=== PATIENT | female | born 1990 | race American Indian/Alaskan Native ===

== ENCOUNTER 2019-05-30 19:21 | Emergency (ER) | payer SELFPAY ==
[2019-05-31] MEDS ORDERED: DECADRON IM ONE (00:16)
--- NOTE | 2019-05-31 00:21 | Emergency Department Report ---
ED ENT HPI - General Chief complaint: Earache Stated complaint: NECK/EAR/TOOTH/LYMPH NODES PAIN Time Seen by Provider: 05/30/19 23:14 Source: patient Mode of arrival: Ambulatory Limitations: No Limitations - History of Present Illness Initial comments: Patient is a 29-year-old female who presents to the emergency room with complaints of a left-sided earache that began 2 days ago. She has associated sore throat and feeling like her lymph nodes are swollen. She denies any fever or sick contacts. denies any ear drainage. States she has a past medical history of hypertension during two years ago but is not taking any medications currently. - Related Data Previous Rx's Medication Instructions Recorded Last Taken Type Ibuprofen [Motrin 800 MG tab] 800 mg PO Q8HR PRN #30 tablet 07/16/16 Unknown Rx Lidocain2.5%/Prilocai2.5% [Emla] 5 gm TP 1XW #1 tube 07/16/16 Unknown Rx oxyCODONE /ACETAMINOPHEN [Percocet 1 - 2 tab PO Q4HR PRN #30 tab 07/16/16 Unknown Rx 5/325 mg] Labetalol [Labetalol 200mg TAB] 200 mg PO BID #60 tablet 07/18/16 Unknown Rx Amoxicillin [Amoxicillin TAB] 875 mg PO BID 7 Days #14 tablet 05/31/19 Unknown Rx Nystas/Diphen/Xyl Visc/Mylanta 30 ml MM BID PRN #480 ml 05/31/19 Unknown Rx [Magic Mouthwash] Allergies Allergy/AdvReac Type Severity Reaction Status Date / Time No Known Allergies Allergy Verified 05/12/14 00:17 ED Dental HPI - General Chief complaint: Earache Stated complaint: NECK/EAR/TOOTH/LYMPH NODES PAIN Time Seen by Provider: 05/30/19 23:14 Source: patient Mode of arrival: Ambulatory Limitations: No Limitations - Related Data Previous Rx's Medication Instructions Recorded Last Taken Type Ibuprofen [Motrin 800 MG tab] 800 mg PO Q8HR PRN #30 tablet 07/16/16 Unknown Rx Lidocain2.5%/Prilocai2.5% [Emla] 5 gm TP 1XW #1 tube 07/16/16 Unknown Rx oxyCODONE /ACETAMINOPHEN [Percocet 1 - 2 tab PO Q4HR PRN #30 tab 07/16/16 Unknown Rx 5/325 mg] Labetalol [Labetalol 200mg TAB] 200 mg PO BID #60 tablet 07/18/16 Unknown Rx Amoxicillin [Amoxicillin TAB] 875 mg PO BID 7 Days #14 tablet 05/31/19 Unknown Rx Nystas/Diphen/Xyl Visc/Mylanta 30 ml MM BID PRN #480 ml 05/31/19 Unknown Rx [Magic Mouthwash] Allergies Allergy/AdvReac Type Severity Reaction Status Date / Time No Known Allergies Allergy Verified 05/12/14 00:17 ED Review of Systems ROS: Stated complaint: NECK/EAR/TOOTH/LYMPH NODES PAIN Other details as noted in HPI Comment: All other systems reviewed and negative ED Past Medical Hx - Past Medical History Previous Medical History?: Yes Hx Hypertension: Yes (chronic HTN, labetalol bid) Hx Heart Attack/AMI: No Hx Congestive Heart Failure: No Hx Diabetes: No Hx Deep Vein Thrombosis: No Hx Renal Disease: No Hx Sickle Cell Disease: No Hx Seizures: No Hx Asthma: No Hx COPD: No Hx HIV: No Additional medical history: gastroenteritis hx. - Surgical History Past Surgical History?: Yes Additional Surgical History: D&C miscarriage 2006 - Social History Smoking Status: Current Every Day Smoker Substance Use Type: None - Medications Home Medications: Home Medications Medication Instructions Recorded Confirmed Last Taken Type Ibuprofen [Motrin 800 MG tab] 800 mg PO Q8HR PRN #30 tablet 07/16/16 Unknown Rx Lidocain2.5%/Prilocai2.5% [Emla] 5 gm TP 1XW #1 tube 07/16/16 Unknown Rx oxyCODONE /ACETAMINOPHEN [Percocet 1 - 2 tab PO Q4HR PRN #30 tab 07/16/16 Unknown Rx 5/325 mg] Labetalol [Labetalol 200mg TAB] 200 mg PO BID #60 tablet 07/18/16 Unknown Rx Amoxicillin [Amoxicillin TAB] 875 mg PO BID 7 Days #14 tablet 05/31/19 Unknown Rx Nystas/Diphen/Xyl Visc/Mylanta 30 ml MM BID PRN #480 ml 05/31/19 Unknown Rx [Magic Mouthwash] ED Physical Exam - General Limitations: No Limitations General appearance: alert, in no apparent distress - Head Head exam: Present: atraumatic, normocephalic - Eye Eye exam: Present: normal appearance, PERRL, EOMI. Absent: periorbital swelling, periorbital tenderness - ENT ENT exam: Present: normal orophraynx, mucous membranes moist, other (left TM with purulence behind the TM and erythema of the TM, ear canals are normal bilaterally, right TM is normal ) - Respiratory Respiratory exam: Present: normal lung sounds bilaterally. Absent: respiratory distress, wheezes, rales, rhonchi, stridor, chest wall tenderness, accessory muscle use, decreased breath sounds, prolonged expiratory - Cardiovascular Cardiovascular Exam: Present: regular rate, normal rhythm, normal heart sounds. Absent: systolic murmur, diastolic murmur, rubs, gallop - Neurological Exam Neurological exam: Present: alert, oriented X3 - Psychiatric Psychiatric exam: Present: normal affect, normal mood - Skin Skin exam: Present: warm, dry, intact ED Course Vital Signs 05/30/19 05/31/19 19:35 00:51 Temperature 98.3 F 98.4 F Pulse Rate 97 H 84 Respiratory 16 18 Rate Blood Pressure 164/113 Blood Pressure 145/82 [Right] O2 Sat by Pulse 100 99 Oximetry ED Medical Decision Making - Medical Decision Making Patient is a 29-year-old female who presents to the emergency room with complaints of a left-sided earache that began 2 days ago. She has associated sore throat and feeling like her lymph nodes are swollen. She denies any fever or sick contacts. denies any ear drainage. States she has a past medical history of hypertension during two years ago but is not taking any medications currently. vitals with elevated blood pressure, improved on repeat. on exam: left TM with purulence behind the TM and erythema of the TM, ear canals are normal bilaterally, right TM is normal, normal oropharynx. pt given dexamethasone injection while in the ED. given prescription for magic mouthwash and amoxicillin. advised to please take medication as prescribed. drink plenty of water. May take Tylenol or ibuprofen for ear discomfort. Follow up with primary care doctor in the next 2-3 days for ear reevaluation. Return to the emergency room for any new or worsening symptoms. Follow-up with primary care doctor in the next 2-3 days due to elevated blood pressure reading during today's visit. Please keep a blood pressure log and take your blood pressure 3 times a day and eat a low sodium diet. - Differential Diagnosis otitis media, strep pharyngitis, URI, viral syndrome, allergies Critical care attestation.: If time is entered above; I have spent that time in minutes in the direct care of this critically ill patient, excluding procedure time. ED Disposition Clinical Impression: Pain in throat, Elevated blood pressure reading Left otitis media Qualifiers: Otitis media type: suppurative Chronicity: acute Recurrence: non-recurrent Spontaneous tympanic membrane rupture: without spontaneous rupture Qualified Code(s): H66.002 - Acute suppurative otitis media without spontaneous rupture of ear drum, left ear Disposition: DC- TO HOME OR SELFCARE Is pt being admited?: No Does the pt Need Aspirin: No Condition: Stable Instructions: Otitis Media (ED) Additional Instructions: Please take medication as prescribed. drink plenty of water. May take Tylenol or ibuprofen for ear discomfort. Follow up with primary care doctor in the next 2-3 days for ear reevaluation. Return to the emergency room for any new or worsening symptoms. Follow-up with primary care doctor in the next 2-3 days due to elevated blood pressure reading during today's visit. Please keep a blood pressure log and take your blood pressure 3 times a day and eat a low sodium diet. Prescriptions: Amoxicillin [Amoxicillin TAB] 875 mg PO BID 7 Days #14 tablet Nystas/Diphen/Xyl Visc/Mylanta [Magic Mouthwash] 30 ml MM BID PRN #480 ml PRN Reason: sore throat Referrals: GAEL HEREDIA MD [Primary Care Provider] - 2-3 Days [facility] [Outside] - 3-5 Days [facility] [Outside] - 3-5 Days Time of Disposition: 00:19 Print Language: ROMANIAN
[2019-05-31 00:52] VITALS: BP 145/82
== END 2019-05-31 01:03 | disposition home or self-care (01) ==
LOC: ED 19:21
DX: H66.002 Acute suppurative otitis media without spontaneous rupture of ear drum, left ear (principal); I10 Essential (primary) hypertension; F17.200 Nicotine dependence, unspecified, uncomplicated; Z79.899 Other long term (current) drug therapy
CPT/HCPCS: 96372; 99282; J1100

== ENCOUNTER 2021-08-24 18:20 | Emergency (ER) | payer OTHER ==
[2021-08-24 20:18] VITALS: BP 150/80
[2021-08-24 21:23] LABS: Bilirubin,Urine NEG (Negative); Blood,Urine LG (Negative); Color,Urine Yellow (Yellow); Mucus,Urine FEW /HPF; Protein,Urine <15 mg/dL mg/dL (Negative); Urobilinogen,Urine < 2.0 mg/dL (<2.0)
[2021-08-24 22:03] LABS: Hematocrit 34.5 % (30.3-42.9); Hemoglobin 10.9 gm/dl (10.1-14.3); Mean Corpuscular HGB Conc 32 % (30-34); Mean Corpuscular Volume 77 fl (79-97); Platelet Count 338 K/mm3 (140-440); Red Cell Distribution Width 17.3 % (13.2-15.2)
[2021-08-24 22:10] LABS: BUN/Creatinine Ratio 14; Blood Urea Nitrogen 10 mg/dL (7-17); Calcium 9.2 mg/dL (8.4-10.2); Hemolysis Index 3
--- NOTE | 2021-08-24 22:16 | Emergency Department Report ---
HPI - General Chief Complaint: Vaginal Bleeding Time Seen by Provider: 08/24/21 21:20 - HPI HPI: This is a 31-year-old -[place] female presents to the emergency department with a complaint of a few days of mild vaginal bleeding and some intermittent lower abdominal and pelvic cramping. The patient says "I want to evaluate the baby." Patient says that she had a positive home test on August 09, then again yesterday, and a third + test at an urgent care this afternoon. With this the patient is G3, P1 with 1 [place] [facility] [place]. When she was with her current child the patient required a cervical cerclage. Otherwise she denies any past medical history. She has not taken anything for symptoms prior to presentation. ED Past Medical Hx - Past Medical History Hx Hypertension: Yes (chronic HTN, labetalol bid) Hx Heart Attack/AMI: No Hx Congestive Heart Failure: No Hx Diabetes: No Hx Deep Vein Thrombosis: No Hx Renal Disease: No Hx Sickle Cell Disease: No Hx Seizures: No Hx Asthma: No Hx COPD: No Hx HIV: No Additional medical history: gastroenteritis hx. - Surgical History Additional Surgical History: D&C miscarriage 2006 - Social History Smoking Status: Current Every Day Smoker Substance Use Type: None - Medications Home Medications: Home Medications Medication Instructions Recorded Confirmed Last Taken Type Ibuprofen [Motrin 800 MG tab] 800 mg PO Q8HR PRN #30 tablet 07/16/16 Unknown Rx Lidocain2.5%/Prilocai2.5% [Emla] 5 gm TP 1XW #1 tube 07/16/16 Unknown Rx oxyCODONE /ACETAMINOPHEN [Percocet 1 - 2 tab PO Q4HR PRN #30 tab 07/16/16 Unknown Rx 5/325 mg] labetaloL [Labetalol 200mg TAB] 200 mg PO BID #60 tablet 07/18/16 Unknown Rx Amoxicillin [Amoxicillin TAB] 875 mg PO BID 7 Days #14 tablet 05/31/19 Unknown Rx Nystas/Diphen/Xyl Visc/Mylanta 30 ml MM BID PRN #480 ml 05/31/19 Unknown Rx [Magic Mouthwash] Vit-Fe Fumar-FA [ 1 tab PO QDAY #30 tablet 08/25/21 Unknown Rx Vitamin] ED Review of Systems ROS: Stated complaint: ABDOMINAL PAIN/LIGHT BLEEDING/PREG Other details as noted in HPI Comment: All other systems reviewed and negative Constitutional: denies: chills, fever Eyes: denies: eye pain, vision change ENT: denies: ear pain, throat pain Respiratory: denies: cough, shortness of breath Cardiovascular: denies: chest pain, palpitations Gastrointestinal: denies: nausea, vomiting Genitourinary: other (Mild vaginal bleeding). denies: dysuria, discharge Musculoskeletal: denies: joint swelling, arthralgia Skin: denies: rash, lesions Neurological: denies: headache, weakness Physical Exam - Physical Exam Vital Signs: Vital Signs 08/24/21 20:13 Temperature 98.7 F Pulse Rate 93 H Respiratory 17 Rate Blood Pressure 150/80 [Right] O2 Sat by Pulse 99 Oximetry Physical Exam: GENERAL: The patient is well-developed well-nourished. HENT: Normocephalic. Atraumatic. Patient has moist mucous membranes. EYES: Extraocular motions are intact. NECK: Supple. Trachea is midline. CHEST/LUNGS: Clear to auscultation. There is no respiratory distress noted. HEART/CARDIOVASCULAR: Regular. There is no tachycardia. There is no murmur. ABDOMEN: Abdomen is soft, nontender. Patient has normal bowel sounds. Morbidly obese habitus. SKIN: Skin is warm and dry. NEURO: The patient is awake, alert, and oriented. The patient is cooperative. Normal speech. MUSCULOSKELETAL: There is no tenderness or deformity. ED Course Vital Signs 08/24/21 20:13 Temperature 98.7 F Pulse Rate 93 H Respiratory 17 Rate Blood Pressure 150/80 [Right] O2 Sat by Pulse 99 Oximetry ED Medical Decision Making - Lab Data Result diagrams: 08/24/21 21:30 08/24/21 21:30 Lab Results 08/24/21 08/24/21 08/24/21 Range/Units 21:30 21:30 21:30 WBC 7.9 (4.5-11.0) K/mm3 RBC 4.50 (3.65-5.03) M/mm3 Hgb 10.9 (10.1-14.3) gm/dl Hct 34.5 (30.3-42.9) % MCV 77 L (79-97) fl MCH 24 L (28-32) pg MCHC 32 (30-34) % RDW 17.3 H (13.2-15.2) % Plt Count 338 (140-440) K/mm3 Sodium 138 (137-145) mmol/L Potassium 3.8 (3.6-5.0) mmol/L Chloride 102.0 (98-107) mmol/L Carbon Dioxide 24 (22-30) mmol/L Anion Gap 16 mmol/L BUN 10 (7-17) mg/dL Creatinine 0.7 (0.6-1.2) mg/dL Estimated GFR > 60 ml/min BUN/Creatinine Ratio 14 % Glucose 110 H (65-100) mg/dL Calcium 9.2 (8.4-10.2) mg/dL HCG, Quant 62818 H (0-4) mIU/mL Urine Color (Yellow) Urine Turbidity (Clear) Urine pH (5.0-7.0) Ur Specific [place] (1.003-1.030) Urine Protein (Negative) mg/dL Urine Glucose (UA) (Negative) mg/dL Urine Ketones (Negative) mg/dL Urine Blood (Negative) Urine Nitrite (Negative) Urine Bilirubin (Negative) Urine Urobilinogen (<2.0) mg/dL Ur Leukocyte Esterase (Negative) Urine WBC (Auto) (0.0-6.0) /HPF Urine RBC (Auto) (0.0-6.0) /HPF U Epithel Cells (Auto) (0-13.0) /HPF Urine Mucus /HPF Blood Type Ord Rhogam Gestat Weeks WEEKS 08/24/21 08/24/21 Range/Units 21:30 Unknown WBC (4.5-11.0) K/mm3 RBC (3.65-5.03) M/mm3 Hgb (10.1-14.3) gm/dl Hct (30.3-42.9) % MCV (79-97) fl MCH (28-32) pg MCHC (30-34) % RDW (13.2-15.2) % Plt Count (140-440) K/mm3 Sodium (137-145) mmol/L Potassium (3.6-5.0) mmol/L Chloride (98-107) mmol/L Carbon Dioxide (22-30) mmol/L Anion Gap mmol/L BUN (7-17) mg/dL Creatinine (0.6-1.2) mg/dL Estimated GFR ml/min BUN/Creatinine Ratio % Glucose (65-100) mg/dL Calcium (8.4-10.2) mg/dL HCG, Quant (0-4) mIU/mL Urine Color Yellow (Yellow) Urine Turbidity Slightly-cloudy (Clear) Urine pH 5.0 (5.0-7.0) Ur Specific [place] 1.020 (1.003-1.030) Urine Protein <15 mg/dl (Negative) mg/dL Urine Glucose (UA) Neg (Negative) mg/dL Urine Ketones Neg (Negative) mg/dL Urine Blood Lg (Negative) Urine Nitrite Neg (Negative) Urine Bilirubin Neg (Negative) Urine Urobilinogen < 2.0 (<2.0) mg/dL Ur Leukocyte Esterase Neg (Negative) Urine WBC (Auto) 6.0 (0.0-6.0) /HPF Urine RBC (Auto) 3.0 (0.0-6.0) /HPF U Epithel Cells (Auto) 12.0 (0-13.0) /HPF Urine Mucus Few /HPF Blood Type B POSITIVE Ord Rhogam Gestat Weeks Rh pos WEEKS - Radiology Data Radiology results: report reviewed ULTRASOUND OBSTETRIC INDICATION / CLINICAL INFORMATION: , vaginal bleeding. Clinical Gestational Age (GA) in weeks, days: 6, 5 TECHNIQUE: Transabdominal. COMPARISON: None available. FINDINGS: GESTATIONAL SAC: Intrauterine gestational sac with mean sac diameter of 2.0 cm corresponding to 6, 6 weeks, days. YOLK SAC: None visualized. EMBRYO/FETUS: None visualized. ADNEXA: Neither ovary could be visualized. No adnexal mass or cyst. FREE FLUID: None. ADDITIONAL FINDINGS: None. IMPRESSION: 1. Intrauterine gestational sac corresponding to 6, 6 weeks, days gestational age but no yolk sac or pole. Clinical and laboratory follow-up is recommended with sonographic follow-up as clinically indicated. - Medical Decision Making This patient presents to the emergency department with a complaint of positive home test, and a few days of some mild to moderate vaginal bleeding and intermittent abdominal and pelvic cramping. Labs shows a beta-hCG of about 11,000. Patient is Rh+ and therefore does not need RhoGam shot. ultrasound shows a gestational sac within the uterus but no yolk sac or pole. The ovaries were not visualized but there is no free fluid or any evidence of ectopic . Vital signs reassuring including being afebrile. All of the lab and imaging results were discussed with the patient. The plan will be for the patient to follow-up with an [facility] in about 4 to 5 days for a repeat beta-hCG and possibly ultrasound. Until that time she has been started on a vitamin and instructed to take her home medications as prescribed. She will return to the emergency department with any worsening of her symptoms or with any acute distress. Critical Care Time: No Critical care attestation.: If time is entered above; I have spent that time in minutes in the direct care of this critically ill patient, excluding procedure time. ED Disposition Clinical Impression: Threatened miscarriage Qualifiers: Weeks of gestation: less than 8 weeks Qualified Code(s): Z3A.01 - Less than 8 weeks gestation of Hypertension Qualifiers: Hypertension type: primary hypertension Qualified Code(s): I10 - Essential (primary) hypertension Disposition: HOME / SELF CARE / HOMELESS Is pt being admited?: No Condition: Stable Instructions: Threatened Miscarriage, Hypertension, Adult, Hypertension (ED) Additional Instructions: The ultrasound today showed an intrauterine gestational sac, but there was no pole or yolk sac. Please follow-up with an [facility] in about 3 to 4 days for a repeat beta hCG, hormone level, as well as a repeat ultrasound to further evaluate this . Please practice pelvic rest. This means please avoid any sexual intercourse and do not place anything inside of the vagina. Return to the emergency department with any worsening of your symptoms, new or concerning symptoms not addressed during this current emergency department visit, or with any acute distress. Prescriptions: Vit-Fe Fumar-FA [ Vitamin] 1 tab PO QDAY #30 tablet Referrals: [facility] [Provider Group] - 3-5 Days [facility] [Provider Group] - 3-5 Days [facility] [Provider Group] - 3-5 Days Time of Disposition: 00:31
--- NOTE | 2021-08-25 00:18 | Ultrasound Report ---
ULTRASOUND OBSTETRIC INDICATION / CLINICAL INFORMATION: , vaginal bleeding. Clinical Gestational Age (GA) in weeks, days: 6, 5 TECHNIQUE: Transabdominal. COMPARISON: None available. FINDINGS: GESTATIONAL SAC: Intrauterine gestational sac with mean sac diameter of 2.0 cm corresponding to 6, 6 weeks, days. YOLK SAC: None visualized. EMBRYO/FETUS: None visualized. ADNEXA: Neither ovary could be visualized. No adnexal mass or cyst. FREE FLUID: None. ADDITIONAL FINDINGS: None. IMPRESSION: 1. Intrauterine gestational sac corresponding to 6, 6 weeks, days gestational age but no yolk sac or pole. Clinical and laboratory follow-up is recommended with sonographic follow-up as clinically indicated. Signer Name: Dari Adhikari MD Signed: 08/25/2021 12:14 AM Workstation Name: [id number]
[2021-08-25 00:49] LABS: Total Cells Counted 100
[2021-08-25 00:50] LABS: Hypochromasia 1+; Platelet Estimate Consistent w Auto
== END 2021-08-25 00:48 | disposition home or self-care (01) ==
LOC: ED 18:20
DX: O20.0 Threatened abortion (principal); O16.1 Unspecified maternal hypertension, first trimester; Z3A.01 Less than 8 weeks gestation of pregnancy
CPT/HCPCS: 36415; 76801; 80048; 81001; 84702; 85007; 85025; 86900; 86901

== ENCOUNTER 2022-03-03 10:54 | Outpatient (CLI) | payer MEDICAID, OTHER ==
[2022-03-03 12:42] VITALS: BP 138/79
--- NOTE | 2022-03-03 16:32 | Ultrasound Report ---
ULTRASOUND OBSTETRIC LIMITED ULTRASOUND BIOPHYSICAL PROFILE INDICATION / CLINICAL INFORMATION: [facility]. COMPARISON: None available. FINDINGS: BREATHING MOVEMENT = 2 GROSS BODY MOVEMENT = 2 TONE = 2 QUALITATIVE AMNIOTIC FLUID VOLUME = 2 TOTAL BIOPHYSICAL SCORE = 8/8 AMNIOTIC FLUID INDEX (cm) = largest pocket 2.9 cm. AMY not calculated PRESENTATION: Cephalic. HEART RATE (beats per minute): 138 ADDITIONAL FINDINGS: None. IMPRESSION: 1. Biophysical Score = 8/8 Signer Name: Cholo Cedeno MD Signed: 03/03/2022 4:27 PM Workstation Name: [email or web address]
== END 2022-03-03 12:57 | disposition home or self-care (01) ==
LOC: TRG 10:54 → APU 10:55 → TRG 12:57
PROVIDERS: ATTEND Obstetrics & Gynecology
DX: O09.93 Supervision of high risk pregnancy, unspecified, third trimester (principal); Z3A.34 34 weeks gestation of pregnancy
CPT/HCPCS: 76819